=== PATIENT | male | born 1990 | race Caucasian/White ===

== ENCOUNTER 2017-02-16 14:11 | Emergency (ER) | payer OTHER ==
[2017-02-16 14:47] VITALS: BP 129/83; PULSE 68; RESP 18; TEMP 99.4
[2017-02-16] MEDS ORDERED: DIPH,PERTUS(ACELL)TETVAC-LF 0.5 ML VIAL IM ONE (15:10)
[2017-02-16] MEDS ORDERED: TOPICAL SKIN ADHESIVE 1 EACH AMP TOPICAL ONE (15:10)
--- NOTE | 2017-02-16 15:53 | ED ---
Wound/Laceration HPI - General Chief Complaint: Wound/Laceration Stated Complaint: Lac Left Palm Time Seen by Provider: 02/16/17 15:01 Source: patient Mode of arrival: ambulatory Limitations: no limitations - History of Present Illness Initial Comments: Patient is a 26-year-old right-handed male presenting to the emergency department with chief complaint of laceration to the palmar aspect of his left hand. Patient states he accidentally cut his hand with an ax while chopping wood. The axe was in a stationary position. Patient applied pressure and proceeded to the emergency department. She is currently complaining of burning to the wound rated 4 out of 10, no relieving or exacerbating factors. Patient denies need for pain medication. No history of recent illness, fevers, nausea, vomiting, shortness of breath, chest pain, or abdominal pain. Patient denies numbness or tingling. Patient is not up-to-date on tetanus immunization. - Related Data Previous Rx's Medication Instructions Recorded Ibuprofen [Motrin] 800 mg PO Q8H PRN #30 tab 11/28/15 Cephalexin [Keflex] 500 mg PO Q6HR #20 cap 02/16/17 Allergies Allergy/AdvReac Type Severity Reaction Status Date / Time No Known Allergies Allergy Verified 02/16/17 14:47 Review of Systems ROS Statement: Those systems with pertinent positive or pertinent negative responses have been documented in the HPI. ROS Other: All systems not noted in ROS Statement are negative. Past Medical History Past Medical History: No Reported History History of Any Multi-Drug Resistant Organisms: None Reported Past Surgical History: Appendectomy Past Psychological History: No Psychological Hx Reported Smoking Status: Current every day smoker Past Alcohol Use History: None Reported Past Drug Use History: None Reported General Exam Limitations: no limitations General appearance: alert, in no apparent distress Head exam: Present: atraumatic, normocephalic Eye exam: Present: normal appearance ENT exam: Present: normal exam, normal oropharynx, mucous membranes moist, TM's normal bilaterally, normal external ear exam Neck exam: Present: normal inspection, full ROM Respiratory exam: Present: normal lung sounds bilaterally. Absent: respiratory distress, wheezes, rales, rhonchi Cardiovascular Exam: Present: regular rate, normal rhythm, normal heart sounds GI/Abdominal exam: Present: soft, normal bowel sounds. Absent: distended Left Forearm Wrist exam: Present: normal inspection, full ROM. Absent: tenderness, swelling Hand Wrist exam: Present: tenderness, laceration (3 cm superficial laceration to palmar aspect of left hand. ) Neuro motor exam: Present: wrist extension intact, thumb opposition intact, thumb IP flexion intact, thumb adduction intact, fingers 2-5 abduction intact Neurosensory exam: Present: radial nerve intact, ulnar nerve intact, median nerve intact Vascular: Present: normal capillary refill, radial pulse, brachial pulse, ulnar pulse. Absent: vascular compromise Neurological exam: Present: alert, oriented X3, normal gait, other (No focal deficits) Psychiatric exam: Present: normal affect, normal mood Skin exam: Present: warm, dry Course Vital Signs 02/16/17 14:44 Temperature 99.4 F Pulse Rate 68 Respiratory 18 Rate Blood Pressure 129/83 O2 Sat by Pulse 98 Oximetry Procedures - Laceration Laceration #1 Consent Obtained: verbal consent Time Out Performed: No Indication: laceration Site: hand (Left palmar crease.) Size (cm): 3 Description: linear, clean Depth: simple, single layer Pre-repair: wound explored, irrigated extensively, deep structures intact Patient Tolerated Procedure: well, no complications Additional Comments: Dermabond applied. Patient tolerated well. Medical Decision Making - Medical Decision Making Laceration to left palmar hand. Laceration repair with Dermabond. Patient tolerated procedure well. Discharge instructions and return parameters reviewed. Disposition Clinical Impression: Laceration Disposition: HOME SELF-CARE Condition: Good Instructions: Skin Adhesive Care (ED) Additional Instructions: Please monitor for signs and symptoms of infection such as redness, red streaks going up the arm, fevers, increased pain. Please to not submerge Dermabond and water but okay to get wet. Do not apply any antibiotic ointment on top of Dermabond. Please return to emergency department with any new or worsening symptoms. Finish antibiotics as prescribed. Prescriptions: Cephalexin [Keflex] 500 mg PO Q6HR #20 cap Referrals: None,Stated [Primary Care Provider] - 1-2 days Time of Disposition: 15:53
== END 2017-02-16 16:00 | disposition home or self-care (01) ==
LOC: EC 14:11
DX: S61.412A Laceration without foreign body of left hand, initial encounter (principal); W26.8XXA Contact with other sharp object(s), not elsewhere classified, initial encounter; Y93.89 Activity, other specified; Z23 Encounter for immunization; F17.200 Nicotine dependence, unspecified, uncomplicated
CPT/HCPCS: 12002; 90471; 90715; 99282

== ENCOUNTER 2019-08-23 03:18 | Emergency (ER) | payer OTHER ==
[2019-08-23 03:24] VITALS: BP 119/81; PULSE 79; RESP 18; TEMP 97.8
--- NOTE | 2019-08-23 03:47 | ED ---
Lower Extremity Injury HPI - General Chief Complaint: Extremity Injury, Lower Stated Complaint: Fell,toe injury Time Seen by Provider: 08/23/19 03:40 Source: patient Mode of arrival: ambulatory Limitations: no limitations - History of Present Illness MD Complaint: foot injury Onset/Timin -: hour(s) Injury: Toes: Left Type of Injury: blunt Place: home Severity: moderate Improves With: NSAID Worsens With: weight bearing, movement Context: fall Associated Symptoms: able to partially bear weight Treatments Prior to Arrival: NSAIDS - Related Data Previous Rx's Medication Instructions Recorded Ibuprofen 800 mg PO TID #20 tablet 08/23/19 Allergies Allergy/AdvReac Type Severity Reaction Status Date / Time No Known Allergies Allergy Verified 08/23/19 03:24 Review of Systems ROS Statement: Those systems with pertinent positive or pertinent negative responses have been documented in the HPI. ROS Other: All systems not noted in ROS Statement are negative. Constitutional: Denies: weakness Gastrointestinal: Denies: abdominal pain Musculoskeletal: Reports: as per HPI, arthralgia. Denies: back pain Skin: Denies: lesions Neurological: Denies: headache, weakness, numbness, paresthesias Past Medical History Past Medical History: No Reported History History of Any Multi-Drug Resistant Organisms: None Reported Past Surgical History: Appendectomy Past Psychological History: No Psychological Hx Reported Smoking Status: Current every day smoker Past Alcohol Use History: None Reported Past Drug Use History: None Reported General Exam Limitations: no limitations General appearance: alert, in no apparent distress Head exam: Present: atraumatic, normocephalic Cardiovascular Exam: Present: other (Dorsalis pedis pulse normal. Capillary refill normal) Extremities exam: Present: normal capillary refill Left Lower Leg exam: Present: normal inspection, full ROM. Absent: tenderness Ankle exam: Present: normal inspection, full ROM. Absent: tenderness Foot/Toe exam: Present: tenderness (Tenderness to palpation of the first toe as well as the metatarsal.). Absent: full ROM Neurovascular tendon exam: Present: no vascular compromise Neurological exam: Present: alert. Absent: motor sensory deficit Skin exam: Present: warm, dry, intact, normal color. Absent: rash Course Vital Signs 08/23/19 03:21 Temperature 97.8 F Pulse Rate 79 Respiratory 18 Rate Blood Pressure 119/81 O2 Sat by Pulse 100 Oximetry Disposition Clinical Impression: Sprain of foot, left Disposition: HOME SELF-CARE Condition: Good Instructions (If sedation given, give patient instructions): Foot Sprain (ED), Foot Contusion (ED) Prescriptions: Ibuprofen 800 mg PO TID #20 tablet Is patient prescribed a controlled substance at d/c from ED?: No Referrals: None,Stated [Primary Care Provider] - 1-2 days
--- NOTE | 2019-08-23 03:57 | XR ---
EXAMINATION TYPE: XR foot complete LT DATE OF EXAM: 08/23/2019 COMPARISON: NONE HISTORY: Foot pain TECHNIQUE: 3 views FINDINGS: Metatarsals are intact. I see no fracture nor dislocation. Joint spaces are normal. There a re no erosions. IMPRESSION: Negative left foot exam. No fracture seen.
[2019-08-23] MEDS ORDERED: traMADol 50 MG STARTER PACK 3 TAB BTL PO STA (04:02)
== END 2019-08-23 04:30 | disposition home or self-care (01) ==
LOC: EC 03:18
DX: S93.602A Unspecified sprain of left foot, initial encounter (principal); F17.200 Nicotine dependence, unspecified, uncomplicated; W10.9XXA Fall (on) (from) unspecified stairs and steps, initial encounter
CPT/HCPCS: 99283

== ENCOUNTER → 2022-07-20 | Outpatient (CLI) | payer OTHER ==
--- NOTE | 2022-07-20 12:47 | XR ---
EXAMINATION TYPE: XR thoracic spine 3 views, XR lumbosacral spine 5 views DATE OF EXAM: 07/20/2022 COMPARISON: NONE HISTORY: 32-year-old male M54.6, M5 4.5 FINDINGS: Thoracic spine: 12 rib bearing thoracic vertebral bodies. All pedicles are visualized. Vertebral body heights are pre served and alignment is maintained. Lumbar spine: 5 lumbar type vertebral bodies. Mild facet arthropathy lower lumbar spine. Vertebral body heights and disc interspaces are preserved and alignment is maintained. IMPRESSION: Thoracic and lumbar spine without vertebral compression collapse or malalignment. Mild early facet ar thropathy in the lower lumbar spine.
== END | disposition home or self-care (01) ==
LOC: RADXRMAIN 10:49
PROVIDERS: ATTEND Nurse Practitioner Family
DX: M47.816 Spondylosis without myelopathy or radiculopathy, lumbar region (principal); M54.6 Pain in thoracic spine
CPT/HCPCS: 72070; 72110

== ENCOUNTER → 2022-08-07 | Outpatient (CLI) | payer OTHER ==
--- NOTE | 2022-08-08 11:01 | US ---
EXAMINATION TYPE: US st tissue neck DATE OF EXAM: 08/07/2022 COMPARISON: NONE CLINICAL HISTORY: 32-year-old male R229 SKIN NODULE. Lump on neck x 4 days TECHNIQUE: Targeted ultrasound along the lateral right neck along the supraclavicular region correspo nding to the site of clinical concern. FINDINGS: Oval, circumscribed hypoechoic area seen in area of concern measuring 3.0 x 1.2 x 0.5cm, likely lymph node. IMPRESSION: What appears to be a borderline to mildly enlarged 3.0 x 1.2 x 0.5 cm lymph node along the right supr aclavicular site of palpable concern. This may be reactive/post inflammatory. Recommend clinical foll ow-up. If any suspicious features developed or the area continues to enlarge, it can be rescanned and /or tissue sampling can be considered.
== END | disposition home or self-care (01) ==
LOC: RADUSWWP 16:49
PROVIDERS: ATTEND Family Medicine
DX: R22.1 Localized swelling, mass and lump, neck (principal)
CPT/HCPCS: 76536

== ENCOUNTER 2023-06-08 14:04 | Emergency (ER) | payer OTHER ==
[2023-06-08 14:28] VITALS: TEMP 98.3
--- NOTE | 2023-06-08 15:00 | ED ---
Neuro HPI - General Chief Complaint: Neuro Symptoms/Deficit Stated Complaint: neuro symptoms/unable to urinate Time Seen by Provider: 06/08/23 14:23 Source: patient, RN notes reviewed Mode of arrival: wheelchair Limitations: no limitations - History of Present Illness Is the patient presenting with stroke symptoms?: Yes Last Known Well Date: 06/05/23 Initial Comments: This is a 32-year-old male who presents to the emergency department for left- sided weakness. Patient states that starting 06/05, he has been unable to feel the left side of his body. He went to [facility], and states th at he was treated poorly. He had his heart evaluated, however they did not do any imaging of his brain. States that they stabbed a needle in the left leg and said that he was lying about his symptoms. They did give him a shot of Lovenox, and states that he feels like afterwards he was able to move more freely. He followed up with his primary care provider today, who advised he come to the emergency department for a stroke workup. Patient reports a family history of cardiac issues and TIAs, and he is concerned about having a stroke. He does not have any pain associated with the weakness. Also states that he is drinking water but has only been able to urinate a very small amount over the last 3 days. - Related Data Home Medications: Home Medications Medication Instructions Recorded Confirmed No Known Home Medications 06/08/23 06/08/23 Allergies/Adverse Reactions: Allergies Allergy/AdvReac Type Severity Reaction Status Date / Time lavender (Lavandula Allergy Anaphylaxis Verified 06/08/23 15:08 angustifolia) "red sauce" AdvReac Nausea & Uncoded 06/08/23 15:08 Vomiting Review of Systems ROS Statement: Those systems with pertinent positive or pertinent negative responses have been documented in the HPI. ROS Other: All systems not noted in ROS Statement are negative. General Exam Limitations: no limitations General appearance: alert, in no apparent distress Head exam: Present: atraumatic, normocephalic, normal inspection Respiratory exam: Present: normal lung sounds bilaterally. Absent: respiratory distress, wheezes, rales, rhonchi, stridor Cardiovascular Exam: Present: regular rate, normal rhythm, normal heart sounds. Absent: systolic murmur, diastolic murmur, rubs, gallop, clicks Neurological exam: Present: alert, oriented X3, CN II-XII intact Expanded Speech: Present: fluid speech Cerebellar function: Finger to Nose: Normal, Heel to Clark: Normal, Romberg: Normal Upper motor neuron: Pronator Drift: Normal Sensory exam: Upper Extremity Light Touch: Abnormal Left, Upper Extremity Temperature: Abnormal Left, UE 2 Point Discrimination: Abnormal Left, Lower Extremity Light Touch: Abnormal Left, Lower Extremity Temperature: Abnormal Left, LE 2 Point Discrimination: Abnormal Left Motor strength exam: RUE: 5, LUE: 5, RLE: 5, LLE: 5 Psychiatric exam: Present: normal affect, normal mood Skin exam: Present: warm, dry, intact, normal color. Absent: rash Stroke MDM - Lab Data Result diagrams: 06/08/23 15:03 06/08/23 15:05 Lab Results 06/08/23 06/08/23 06/08/23 Range/Units 15:03 15:05 15:05 WBC 8.8 (3.8-10.6) k/uL RBC 4.63 (4.30-5.90) m/uL Hgb 14.4 (13.0-17.5) gm/dL Hct 42.4 (39.0-53.0) % MCV 91.5 (80.0-100.0) fL MCH 31.1 (25.0-35.0) pg MCHC 34.0 (31.0-37.0) g/dL RDW 13.3 (11.5-15.5) % Plt Count 236 (150-450) k/uL MPV 8.4 Neutrophils % 72 % Lymphocytes % 17 % Monocytes % 6 % Eosinophils % 1 % Basophils % 0 % Neutrophils # 6.4 (1.3-7.7) k/uL Lymphocytes # 1.5 (1.0-4.8) k/uL Monocytes # 0.5 (0-1.0) k/uL Eosinophils # 0.1 (0-0.7) k/uL Basophils # 0.0 (0-0.2) k/uL PT 10.8 (10.0-12.5) sec INR 1.0 (<1.2) APTT 27.3 (22.0-30.0) sec Sodium (137-145) mmol/L Potassium (3.5-5.1) mmol/L Chloride (98-107) mmol/L Carbon Dioxide (22-30) mmol/L Anion Gap mmol/L BUN (9-20) mg/dL Creatinine (0.66-1.25) mg/dL Est GFR (CKD-EPI)AfAm (>60 ml/min/1.73 sqM) Est GFR (CKD-EPI)NonAf (>60 ml/min/1.73 sqM) Glucose (74-99) mg/dL Calcium (8.4-10.2) mg/dL Total Bilirubin (0.2-1.3) mg/dL AST (17-59) U/L ALT (4-49) U/L Alkaline Phosphatase (38-126) U/L Creatine Kinase (55-170) U/L Troponin I (0.000-0.034) ng/mL Total Protein (6.3-8.2) g/dL Albumin (3.5-5.0) g/dL Urine Opiates Screen Not Detected (NotDetected) Ur Oxycodone Screen Not Detected (NotDetected) Urine Methadone Screen Not Detected (NotDetected) Ur Propoxyphene Screen Not Detected (NotDetected) Ur Barbiturates Screen Not Detected (NotDetected) U Tricyclic Antidepress Not Detected (NotDetected) Ur Phencyclidine Scrn Not Detected (NotDetected) Ur Amphetamines Screen Not Detected (NotDetected) U Methamphetamines Scrn Not Detected (NotDetected) U Benzodiazepines Scrn Not Detected (NotDetected) Urine Cocaine Screen Not Detected (NotDetected) U Marijuana (THC) Screen Detected H (NotDetected) 06/08/23 06/08/23 Range/Units 15:05 15:05 WBC (3.8-10.6) k/uL RBC (4.30-5.90) m/uL Hgb (13.0-17.5) gm/dL Hct (39.0-53.0) % MCV (80.0-100.0) fL MCH (25.0-35.0) pg MCHC (31.0-37.0) g/dL RDW (11.5-15.5) % Plt Count (150-450) k/uL MPV Neutrophils % % Lymphocytes % % Monocytes % % Eosinophils % % Basophils % % Neutrophils # (1.3-7.7) k/uL Lymphocytes # (1.0-4.8) k/uL Monocytes # (0-1.0) k/uL Eosinophils # (0-0.7) k/uL Basophils # (0-0.2) k/uL PT (10.0-12.5) sec INR (<1.2) APTT (22.0-30.0) sec Sodium 138 (137-145) mmol/L Potassium 3.9 (3.5-5.1) mmol/L Chloride 103 (98-107) mmol/L Carbon Dioxide 26 (22-30) mmol/L Anion Gap 9 mmol/L BUN 10 (9-20) mg/dL Creatinine 0.78 (0.66-1.25) mg/dL Est GFR (CKD-EPI)AfAm >90 (>60 ml/min/1.73 sqM) Est GFR (CKD-EPI)NonAf >90 (>60 ml/min/1.73 sqM) Glucose 83 (74-99) mg/dL Calcium 9.3 (8.4-10.2) mg/dL Total Bilirubin 1.0 (0.2-1.3) mg/dL AST 30 (17-59) U/L ALT 22 (4-49) U/L Alkaline Phosphatase 32 L (38-126) U/L Creatine Kinase 98 (55-170) U/L Troponin I <0.012 (0.000-0.034) ng/mL Total Protein 6.8 (6.3-8.2) g/dL Albumin 4.2 (3.5-5.0) g/dL Urine Opiates Screen (NotDetected) Ur Oxycodone Screen (NotDetected) Urine Methadone Screen (NotDetected) Ur Propoxyphene Screen (NotDetected) Ur Barbiturates Screen (NotDetected) U Tricyclic Antidepress (NotDetected) Ur Phencyclidine Scrn (NotDetected) Ur Amphetamines Screen (NotDetected) U Methamphetamines Scrn (NotDetected) U Benzodiazepines Scrn (NotDetected) Urine Cocaine Screen (NotDetected) U Marijuana (THC) Screen (NotDetected) - NIH Stroke Scale 1a. Level of Consciousness: (0) alert 1b. LOC Questions: (0) answers correctly 1c. LOC Commands: (0) performs tasks correctly 2. Best Gaze: (0) normal 3. Visual: (0) no visual loss 4. Facial Palsy: (0) normal symmetrical movement 5a. Motor Arm Left: (0) no drift 5b. Motor Arm Right: (0) no drift 6a. Motor Leg Left: (0) no drift 6b. Motor Leg Right: (0) no drift 7. Limb Ataxia: (0) absent 8. Sensory: (1) mild/moderate sensory loss 9. Best Language: (0) no aphasia 10. Dysarthria: (0) normal 11. Extinction/Inattention: (0) no abnormality - Thrombolytic Inclusion/Exclusion Thrombolytic Exclusion Criteria: Symptom Onset > 4.5 Hours - Medical Decision Making This is a 32-year-old male who presents to the emergency department for left- sided weakness/numbness Was pt. sent in by a medical professional or institution? @ -His PCP Did you speak to anyone other than the patient for history? @ -No Did you review nursing and triage notes? @ -Yes, and I agree, it is accurate with regards to the patient's symptoms. Were old charts reviewed? @ -No Differential Diagnosis? @ -Differential CVA: Ischemic stroke, hemorrhagic stroke, brain tumor, atypical migraine, Wernicke's encephalopathy, seizure, multiple sclerosis, meningitis, encephalitis, hypoglycemia, Guillain-Saul, electrolytes disturbance, myasthenia gravis.... This is not meant to be an all-inclusive list EKG interpreted by me (3pts min.)? @ -EKG interpreted by me demonstrating the following: Sinus rhythm. Ventricular rate 60 bpm, DE interval 143 ms, QRS duration 96 ms, QTC 412 ms. X-rays interpreted by me (1pt min.)? @ -Not obtained CT interpreted by me (1pt min.)? @ -CT scan of the brain and CT angiogram of the head and neck obtained. My interpretation identifies no evidence of an acute intracranial hemorrhage, ischemic area, or aneurysm. U/S interpreted by me (1pt. min.)? @ -Not obtained What testing was considered but not performed? (CT, X-rays, U/S, labs)? Why? @ -None What meds were considered but not given? Why? @ -None Did you discuss the management of the patient with other professionals? @ -Yes, Dr. Camargo, neurology. He advised that one of his concerns would be multiple sclerosis. Discussed that he does likely need an MRI, however given that it is the this will be very backed up and it may be Sunday before this could be done, and this could be left up to the patient's discretion whether or not he wants to stay or have this done on an outpatient basis. Did you reconcile home meds? @ -No Was smoking cessation discussed for >3mins.? @ -I discussed smoking cessation for greater than 3 minutes. The risk of smoking were discussed with the patient including but not limited to risks of cancer, stroke, coronary artery disease and COPD. Also discussed with patient were multiple methods of quitting smoking. Lastly we discussed the financial cost of smoking. Was critical care preformed (if so, how long)? @ -No Were there social determinants of health that impacted care today? How? (Homelessness, low income, unemployed, alcoholism, drug addiction, transportation, low edu. Level, literacy, decrease access to med. care, fpc, rehab)? @ -No Was there de-escalation of care discussed even if they declined? (Discuss DNR or withdrawal of care, Hospice)? @ -No What co-morbidities impacted this encounter? (DM, HTN, Smoking, COPD, CAD, Cancer, CVA, Hep., AIDS, mental health diagnosis, sleep apnea, morbid obesity)? @ -Smoking Was patient admitted / discharged? @ -Discharged. On examination of the patient, his motor skills were entirely intact bilaterally, he just had moderately impaired sensation on the left side. However, when the nurse went to start his IV, he did feel the poke, which he states is more sensation than he has had over the last 3 days. Lab work obtained revealing no actionable findings. Urine drug screen positive for marijuana and no other illicit substances. Computed tomography scan of the brain and CT angiogram of the head and neck obtained revealing no acute process. I discussed the case with Dr. Camargo, neurology. His concern would be multiple sclerosis, and he advised that the patient would need an MRI of the brain and neck. However, as it is the weekend it may be Sunday before this could be done, and the patient may not want to stay here all weekend just to have the study. Because of this, he advised leaving this up to the patient. This was discussed with the patient, who would like to go home, and states that he will return if anything worsens or changes. Advised he discussed this with his primary care provider to proceed with an MRI of the brain and C-spine on an outpatient basis. Undiagnosed new problem with uncertain prognosis? @ -None Drug Therapy requiring intensive monitoring for toxicity (Heparin, Nitro, Insulin, Cardizem)? @ -None Were any procedures done? @ -None Diagnosis/symptom? @ -Left sided paresthesia Acute, or Chronic, or Acute on Chronic? @ -Acute Uncomplicated (without systemic symptoms) or Complicated (systemic symptoms)? @ -Uncomplicated Side effects of treatment? @ -None Exacerbation, Progression, or Severe Exacerbation] @ -Not applicable Poses a threat to life or bodily function? @ -Unclear, this will depend on the cause Return precautions reviewed in depth, the patient is instructed to return to the emergency department with any new, worsening, or concerning symptoms. Patient verbalized understanding. This case was discussed in detail with the attending ED physician, Dr. Bedolla. Presentation, findings, and treatment plan discussed in detail as well. Past Medical History Past Medical History: No Reported History History of Any Multi-Drug Resistant Organisms: None Reported Past Surgical History: Appendectomy Past Psychological History: No Psychological Hx Reported Smoking Status: Former smoker Past Alcohol Use History: None Reported Past Drug Use History: None Reported Course Vital Signs 06/08/23 06/08/23 14:08 16:41 Temperature 98.3 F Pulse Rate 84 65 Respiratory 16 18 Rate Blood Pressure 146/103 121/86 O2 Sat by Pulse 95 99 Oximetry Disposition Clinical Impression: Left sided numbness, Nicotine dependence Disposition: HOME SELF-CARE Instructions (If sedation given, give patient instructions): Paresthesia (ED) Additional Instructions: Return to the emergency department with any new, worsening, or concerning symptoms. Follow up with your primary care provider to reevaluate ongoing symptoms and discuss an MRI of the brain and neck to evaluate for signs of multiple sclerosis. Is patient prescribed a controlled substance at d/c from ED?: No Referrals: Razia Alva MD [Primary Care Provider] - 1-2 days
[2023-06-08 15:12] LABS: Basophils % (A) 0 %; Eosinophils # (A) 0.1 k/uL (0-0.7); Eosinophils % (A) 1 %; HCT 42.4 % (39.0-53.0); HGB 14.4 gm/dL (13.0-17.5); Lymphocytes # (A) 1.5 k/uL (1.0-4.8); Lymphocytes % (A) 17 %; MCH 31.1 pg (25.0-35.0); MCV 91.5 fL (80.0-100.0); Mean Platelet Volume 8.4; Monocytes # (A) 0.5 k/uL (0-1.0); Monocytes % (A) 6 %; Neutrophils # (A) 6.4 k/uL (1.3-7.7); Neutrophils % (A) 72 %; Platelet Count 236 k/uL (150-450); RBC 4.63 m/uL (4.30-5.90); RDW 13.3 % (11.5-15.5); WBC 8.8 k/uL (3.8-10.6)
[2023-06-08 15:23] LABS: ALT 22 U/L (4-49); AST 30 U/L (17-59); African American GFR (CKD) >90 (>60 ml/min/1.73 sqM); Albumin 4.2 g/dL (3.5-5.0); Alkaline Phosphatase 32 U/L (38-126); Anion Gap 9 mmol/L; Blood Urea Nitrogen 10 mg/dL (9-20); Calcium 9.3 mg/dL (8.4-10.2); Carbon Dioxide 26 mmol/L (22-30); Chloride 103 mmol/L (98-107); Creatine Kinase 98 U/L (55-170); Glucose 83 mg/dL (74-99); Non-African American GFR(CKD) >90 (>60 ml/min/1.73 sqM); Potassium 3.9 mmol/L (3.5-5.1); Sodium 138 mmol/L (137-145); Total Protein 6.8 g/dL (6.3-8.2)
[2023-06-08 15:33] LABS: Amphetamine Screen,Urine Not Detected (NotDetected); Barbiturate Screen,Urine Not Detected (NotDetected); Benzodiazepines Screen,Urine Not Detected (NotDetected); Cocaine Screen,Urine Not Detected (NotDetected); Methadone Screen, Urine Not Detected (NotDetected); Opiate Screen,Urine Not Detected (NotDetected); Oxycodone Screen, Urine Not Detected (NotDetected); Phencyclidine Screen,Urine Not Detected (NotDetected); Tricyclic Antidepressant,Urine Not Detected (NotDetected); Urn Cannabinoid Scrn Detected (NotDetected)
[2023-06-08 15:37] LABS: Partial Thromboplastin Time 27.3 sec (22.0-30.0); Prothrombin Time 10.8 sec (10.0-12.5)
--- NOTE | 2023-06-08 15:49 | CT ---
EXAMINATION TYPE: CT brain wo con DATE OF EXAM: 06/08/2023 COMPARISON: None HISTORY: 32-year-old male Neuro deficits, LT side numbness, unable to urinate. TECHNIQUE: Examination was done in axial plane without intravenous contrast. Coronal and sagittal r econstructions performed. CT DLP: 1142.6 mGycm Automated exposure control for dose reduction was used. FINDINGS: There is no evidence of acute intracranial hemorrhage, acute ischemic changes, mass, mass-effect, or extra-axial fluid collection. There is no effacement of cerebral sulci or basal subarachnoid cister ns. There is no hydrocephalus. There is no midline shift. Daniels-white matter distinction is preserv ed. 1.4 cm mucosal retention cyst posterior floor of the left maxillary sinus. Mastoid air cells are well pneumatized. Rightward nasal septal deviation. Orbits and globes are intact. IMPRESSION: No acute intracranial abnormality seen.
--- NOTE | 2023-06-08 15:59 | CT ---
EXAMINATION TYPE: CT angio head neck DATE OF EXAM: 06/08/2023 COMPARISON: CT brain same day HISTORY: 32-year-old male neurologic deficit, acute, stroke suspected, left-sided numbness and unable to urinate. TECHNIQUE: Contiguous axial scanning of the head and neck performed with IV Contrast, patient injecte d with 65 mL of Isovue 370. Coronal and sagittal MIP reconstructions performed. 3-D reconstructions g enerated on a dedicated independent workstation. CT DLP: 432.7 mGycm Automated exposure control for dose reduction was used. FINDINGS: NECK: There is conventional arch vessel branching anatomy. The vertebral arteries are codominant and patent throughout their course. The bilateral common and internal carotid arteries are widely patent. NASCET criteria was utilized. HEAD: The vertebral and basilar arteries as well as the remainder of the posterior circulation is patent. The internal carotid arteries and remainder of the anterior circulation is patent. No aneurysmal changes seen. Dural venous sinuses are patent. IMPRESSION: 1. NECK: WIDELY PATENT VERTEBRAL AND CAROTID ARTERIES OF THE NECK. 2. HEAD: NO LARGE VESSEL INTRACRANIAL ARTERIAL OCCLUSION, SIGNIFICANT STENOSIS, OR ANEURYSMAL CHANGE IS SEEN.
[2023-06-08 16:45] VITALS: BP 121/86; PULSE 65; RESP 18
== END 2023-06-08 16:45 | disposition home or self-care (01) ==
LOC: EC 14:04
DX: R20.0 Anesthesia of skin (principal); R20.2 Paresthesia of skin; F17.200 Nicotine dependence, unspecified, uncomplicated; Z88.8 Allergy status to other drugs, medicaments and biological substances; Z91.09 Other allergy status, other than to drugs and biological substances
CPT/HCPCS: 36415; 93005; 80053; 82550; 84484; 85025; 85610; 85730; 80306; 70496; 70450; 70498; 99284; Q9967

== ENCOUNTER → 2023-06-22 | Outpatient (CLI) | payer OTHER ==
--- NOTE | 2023-06-22 11:52 | MR ---
EXAMINATION TYPE: MR brain wo con DATE OF EXAM: 06/22/2023 11:32 AM COMPARISON: NONE HISTORY: Weakness of left side of body Multiplanar and multispin-echo imaging of the brain was performed . The ventricles, basal cisterns and sulci overlying the cerebral convexities are within normal limits. There is no evidence for midline shift or mass effect. Acute intracranial hemorrhage or extra-axial collection is not evident. Foci of increased signal noted on the inversion recovery data set totaling approximately 16 on the ri ght and 12 the 14 on the left. The largest lesion right parietal lobe posterior centrum semioval bila terally measures 6.2 mm and on the left the largest lesion measures 6.5 mm. No acute edema is identified. The paranasal sinuses and mastoid air cells are well-aerated. IMPRESSION: Findings may reflect demyelinating disease. Correlate clinically. No acute edema present.
== END | disposition home or self-care (01) ==
LOC: RADMRIMAIN 09:52
PROVIDERS: ATTEND Internal Medicine
DX: R53.1 Weakness (principal)
CPT/HCPCS: 70551

== ENCOUNTER → 2023-07-18 | Outpatient (CLI) | payer OTHER ==
--- NOTE | 2023-07-18 11:25 | MR ---
EXAMINATION TYPE: MR cervical spine wo con DATE OF EXAM: 07/18/2023 COMPARISON: None HISTORY: No prior, pt experiences sudden onset weakness to left side, worked up for stroke, r/o demye linating disease, no CA no sx TECHNIQUE: Multiplanar, multisequence images of the cervical spine were acquired without contrast. C2-C3: Mild disc desiccation.. No disc bulge/herniation or protrusion. No Canal stenosis. Foramina are patent bilaterally. C3-C4: Mild disc desiccation. No disc bulge/herniation or protrusion. No Canal stenosis. Foramina are patent bilaterally. C4-C5: Mild disc desiccation. No canal stenosis or focal herniation. No significant foraminal encroac hment C5-C6: There is abnormal signal seen paracentrally and laterally to the right extending into the righ t neural foramina. Suspect a small disc protrusion and narrowing of the right foramina. Left neural f oramina are patent. No canal stenosis. C6-C7: Disc herniation, degenerative disc disease, canal stenosis or foraminal encroachment. C7-T1: No evidence for degenerative disc disease. No disc bulge/herniation or protrusion. No Canal stenosis. Foramina are patent bilaterally. Cervical segments are intact. There is normal alignment. Cervical spinal cord is of normal signal. Cerebellar tonsils are low-lying in position. IMPRESSION: 1. Multilevel mild degenerative disc disease. There is suspicion for a right paracentral and lateral' s focal disc protrusion or tiny herniation versus spur/disc osteophyte complex and right-sided forami nal encroachment. Recommend postcontrast T1 sagittal and axial images for further evaluation. 2. Low-lying cerebellar tonsils.
== END | disposition home or self-care (01) ==
LOC: RADMRIMAIN 10:24
PROVIDERS: ATTEND Internal Medicine
DX: M50.323 Other cervical disc degeneration at C6-C7 level (principal); R53.1 Weakness
CPT/HCPCS: 72141